=== PATIENT | female | born 1945 | race Hispanic/Latino ===

== ENCOUNTER → 2020-04-17 | Outpatient (CLI) | payer OTHER | END | disposition home or self-care (01) | LOC: RAH 12:54 | PROVIDERS: ATTEND Internal Medicine | DX: Z12.31 Encounter for screening mammogram for malignant neoplasm of breast (principal); N64.89 Other specified disorders of breast | CPT/HCPCS: 77067 ==

== ENCOUNTER → 2021-08-06 | Outpatient (CLI) | payer OTHER | END | disposition home or self-care (01) | LOC: RAH 10:41 | PROVIDERS: ATTEND Internal Medicine | DX: Z12.31 Encounter for screening mammogram for malignant neoplasm of breast (principal) | CPT/HCPCS: 77067 ==

== ENCOUNTER → 2023-06-27 | Outpatient (CLI) | payer OTHER | END | disposition home or self-care (01) | LOC: RAH 10:09 | PROVIDERS: ATTEND Internal Medicine | DX: Z12.31 Encounter for screening mammogram for malignant neoplasm of breast (principal) | CPT/HCPCS: 77067 ==

== ENCOUNTER → 2023-06-30 | Outpatient (CLI) | payer OTHER | END | disposition home or self-care (01) | LOC: RAH 08:04 | PROVIDERS: ATTEND Internal Medicine | DX: K80.20 Calculus of gallbladder without cholecystitis without obstruction (principal); R74.8 Abnormal levels of other serum enzymes; K76.89 Other specified diseases of liver | CPT/HCPCS: 76700 ==

== ENCOUNTER → 2024-07-30 | Outpatient (CLI) | payer OTHER ==
--- NOTE | 2024-07-30 09:58 | HMCIMG ---
ULTRASOUND ABDOMEN COMPLETE INDICATION: Gallstones and liver cyst COMPARISON: 06/30/2023. FINDINGS: The liver is normal in size and increased in echogenicity; 2.9 cm simple right hepatic lobe cyst demonstrated. Main portal vein is patent, and normal direction of vascular flow demonstrated. The common bile duct caliber measures 4.0 mm. Echogenic shadowing stones within the gallbladder lumen without associated pericholecystic fluid. No sonographic Ruiz's sign elicited by the ultrasound pneumatic hoist operator. Wall thickness measures 3.0 mm. The spleen is normal in size and echotexture. The spleen measures 9.0 cm. Visible portions of the pancreas appear unremarkable. The right kidney measures 8.2 x 4.3 x 3.7 cm,and is normal in echogenicity, without evidence for hydronephrosis or shadowing stones. The left kidney measures 9.4 x 4.5 x 3.2 cm,and is normal in echogenicity, without evidence for hydronephrosis or shadowing stones. Mild calcific plaque along the abdominal aortic [place]. Visible portions of the inferior vena cava are within normal limits. No free fluid demonstrated. IMPRESSION: Cholelithiasis without cholecystitis. Findings suggesting hepatic steatosis. Additional minor findings and pertinent negatives as reported.
== END | disposition home or self-care (01) ==
LOC: RAH 08:38
PROVIDERS: ATTEND Student in an Organized Health Care Education/Training Program
DX: K80.20 Calculus of gallbladder without cholecystitis without obstruction (principal); K76.89 Other specified diseases of liver; R10.9 Unspecified abdominal pain
CPT/HCPCS: 76700

== ENCOUNTER → 2024-12-03 | Outpatient (CLI) | payer OTHER ==
--- NOTE | 2024-12-04 09:06 | HMCIMG ---
EXAMINATION: ULTRASOUND OF THE RETROPERITONEUM. CLINICAL HISTORY: CKD stage III. COMPARISON: None. TECHNIQUE: Real-time grayscale ultrasound images of the kidneys. FINDINGS: The kidneys are smaller in caliber, the right kidney measures 7.6 x 4.7 x 4.2 cm and the left kidney measures 8.3 x 5.3 x 5.2 cm in its craniocaudal, AP, and transverse dimensions respectively. There is normal renal cortical thickness, and cortical echogenicity. There is no renal calculus or hydronephrosis. The urinary bladder is empty. IMPRESSION: Bilateral atrophic kidneys. No hydronephrosis. /Artemio
== END | disposition home or self-care (01) ==
LOC: RAH 09:21
PROVIDERS: ATTEND Internal Medicine
DX: N26.1 Atrophy of kidney (terminal) (principal); N18.30 Chronic kidney disease, stage 3 unspecified
CPT/HCPCS: 76770